=== PATIENT | male | born 1945 | race Two or more races ===

== ENCOUNTER 2018-04-21 23:28 | Emergency (ER) | payer OTHER ==
[~2018-04-21] VITALS: Ht 167.6 cm; Wt 52.2 kg
[2018-04-21] MEDS ORDERED: NUPLAZID17 MG (23:46)
[2018-04-21] MEDS ORDERED: FOLIC ACID1 MG (23:47)
[2018-04-21] MEDS ORDERED: ZOCOR20 MG (23:47)
[2018-04-21] MEDS ORDERED: SINEMET 25-1001 EACH (23:48)
[2018-04-21] MEDS ORDERED: BACLOFEN10 MG (23:49)
[2018-04-21] MEDS ORDERED: MIRAPEX1 MG (23:51)
[2018-04-21] MEDS ORDERED: VITAMIN C1000 MG (23:52)
[2018-04-21] MEDS ORDERED: VITAMIN D1000 UNIT (23:53)
[2018-04-21] MEDS ORDERED: [UNRECOGNIZED DRUG - OTHER] (23:55)
[2018-04-22] MEDS ORDERED: ZYNCOF 20-400120 ML PO (05:10)
== END 2018-04-22 05:18 ==
LOC: ER 23:28
DX: R53.1 Weakness (principal); R06.9 Unspecified abnormalities of breathing